=== PATIENT | male | born 1985 | race Caucasian/White ===

== ENCOUNTER 2018-05-08 19:03 | Emergency (ER) | payer MEDICAID ==
[2018-05-08 19:17] VITALS: BP 131/84; PULSE 90; RESP 16; TEMP 98.2; O2SAT 95
--- NOTE | 2018-05-08 19:30 | ED PDOC ---
HPI: CCC, URI, Sore Throat Time Seen by Provider: 05/08/18 19:23 Chief Complaint (Nursing): ENT Problem Chief Complaint (Provider): ENT problem History Per: Patient History/Exam Limitations: no limitations Onset/Duration Of Symptoms: Days (1x) Current Symptoms Are (Timing): Still Present Location Of Pain: None Associated Symptoms: Fever. denies: Nasal Congestion Ear Symptoms: Left: Ear Drainage (bleeding) Severity: Moderate Additional Complaint(s): 33 year old male with no pertinent past medical history presents to the ED for an evaluation of left ear bleeding that started today. Patient denies having pain. Patient states that 3x years ago, he had tubes placed in both ears due to frequent ear infections. Patient states that for the past 2x years, he has been experiencing worsening hearing loss. Patient reports that the tubes were placed by an ENT in [place], but does not have an ENT here. Patient denies having fevers, trauma, and congestion. Of note: Patient also states that he cleans his ears with q-tips frequently. PMD: Jennifer Alejandra MD Past Medical History Reviewed: Historical Data, Nursing Documentation, Vital Signs Vital Signs: Last Vital Signs Temp 98.2 F 05/08/18 19:17 Pulse 90 05/08/18 19:17 Resp 16 05/08/18 19:17 BP 131/84 05/08/18 19:17 Pulse Ox 95 05/08/18 19:17 MARVIN report viewed?: Yes - Medical History PMH: No Chronic Diseases - Surgical History Other surgeries: tubes placed in both ears - Family History Family History: States: No Known Family Hx - Social History Alcohol: None Drugs: Denies - Home Medications Home Medications: Ambulatory Orders Medication Instructions Recorded Naproxen 375 mg PO Q8 PRN #21 tab 01/07/16 Amoxicillin 875 mg PO BID #20 tablet 05/08/18 - Allergies Allergies/Adverse Reactions: Allergies Allergy/AdvReac Type Severity Reaction Status Date / Time No Known Allergies Allergy Verified 05/08/18 19:13 Review of Systems ROS Statement: Except As Marked, All Systems Reviewed And Found Negative Constitutional: Negative for: Fever ENT: Positive for: Ear Discharge (left ear bleeding). Negative for: Nose Congestion Physical Exam - Reviewed Nursing Documentation Reviewed: Yes Vital Signs Reviewed: Yes - Physical Exam Appears: Positive for: Well, Non-toxic Head Exam: Positive for: ATRAUMATIC, NORMOCEPHALIC ENT: Positive for: Pharynx Is (clear), Other (bilateral ears with tubes in place. minimal bleeding in left ear canal. (-) active bleeding. (+) mild effusion in left TM, non-bulging, non-erythematous.). Negative for: Pharyngeal Erythema Respiratory: Positive for: Normal Breath Sounds Neurologic/Psych: Positive for: Alert, Oriented (3x) - ECG O2 Sat by Pulse Oximetry: 95 (RA) Pulse Ox Interpretation: Normal Medical Decision Making Medical Decision Makin:23 Initial impression: 33 year old male with bleeding in the left ear. Patient is advised to follow up with ENT for further evaluation, and to stop cleaning his ears with q-tips. Scribe Attestation: Documented by Vickie Jama, acting as a scribe for Jose Garcia Provider Scribe Attestation: All medical record entries made by the Scribe were at my direction and personally dictated by me. I have reviewed the chart and agree that the record accurately reflects my personal performance of the history, physical exam, medical decision making, and the department course for this patient. I have also personally directed, reviewed, and agree with the discharge instructions and disposition. Disposition - Clinical Impression Clinical Impression: Bleeding from left ear - Patient ED Disposition Is Patient to be Admitted: No - Disposition Referrals: Jorden Alvarado MD [Staff Provider] - Disposition: Routine/Home Disposition Time: 19:29 Condition: STABLE Additional Instructions: FOLLOW UP WITH DR. ALVARADO (ENT) FOR FURTHER EVALUATION RETURN TO ED IMMEDIATELY IF SYMPTOMS WORSEN MELECIO NAVA, thank you for letting us take care of you today. Your provider was Mariaa Jack MD and you were treated for LT EAR BLEEDING. The emergency medical care you received today was directed at your acute symptoms. If you were prescribed any medication, please fill it and take as directed. It may take several days for your symptoms to resolve. Return to the Emergency Department if your symptoms worsen, do not improve, or if you have any other problems. Please contact your doctor or call one of the physicians/clinics you have been referred to that are listed on the Patient Visit Information form that is i ncluded in your discharge packet. Bring any paperwork you were given at discharge with you along with any medications you are taking to your follow up visit. Our treatment cannot replace ongoing medical care by a primary care provider outside of the emergency department. Thank you for allowing the [facility] team to be part of your care today. If you had an X-Ray or CT scan: A Radiologist will review the ED reading if any change in treatment is needed we will contact you. If you had a blood, urine, or wound culture: It will take several days for the results, if any change in treatment is needed we will contact you. If you had an STI test: It will take 48 hours for the results. Please call after 1 week if you have not heard back. Prescriptions: Amoxicillin 875 mg PO BID #20 tablet Instructions: Ear Tubes Forms: [employer] (Macedonian) Print Language: JAPANESE
== END 2018-05-08 20:05 | disposition home or self-care (01) ==
LOC: H.ER 19:03
DX: H92.22 Otorrhagia, left ear (principal)

== ENCOUNTER 2018-08-22 14:18 | Emergency (ER) | payer MEDICAID ==
[2018-08-22 15:39] VITALS: BP 118/70; PULSE 83; RESP 16; TEMP 98.9; O2SAT 93
--- NOTE | 2018-08-22 16:36 | RAD ---
Date of service: 08/22/2018 PROCEDURE: Radiographs of the Chest and Left Ribs. HISTORY: PAIN TO RIBS COMPARISON: None available. TECHNIQUE: Frontal radiograph of the chest and multiple oblique radiographs of the left ribs were obtained. 4 views obtained. FINDINGS: LEFT RIBS: No fracture or focal lesion visualized. LUNGS: Clear. PLEURA: No pneumothorax or pleural fluid. CARDIOVASCULAR: Normal cardiac size. No pulmonary vascular congestion. No aortic atherosclerotic calcification present OTHER FINDINGS: None. IMPRESSION: Unremarkable radiographs of the chest and left ribs. No left rib fracture.
--- NOTE | 2018-08-22 16:40 | ED PDOC ---
HPI: Back Chief Complaint (Nursing): Back Pain Chief Complaint (Provider): Back Pain History Per: Patient History/Exam Limitations: no limitations Onset/Duration Of Symptoms: Days (last night ) Current Symptoms Are (Timing): Still Present Additional Complaint(s): 33 year old male with no significant past medical history presents to the ED with left rib pain onset last night. The pain is localized to the area 3 fingers underneath the breast. Patient reports that he was sleeping last night face down, and got up to use the bathroom. Upon turning he felt a pop in the area. Patient states that he did not feel pain instantly. Patient reports that when he woke up he felt pain while trying to rise. The pain is localized to area, non radiating. Patient reports that it is hard to make movements, bend, even take deep breaths due to pain. He was given Mobic from his PMD for his back pain. Patient states that he took one dose 3X hours ago with minimal relief. PMD: Jennifer Alejandra MD Past Medical History Reviewed: Historical Data Vital Signs: Last Vital Signs Temp 98.9 F 08/22/18 15:36 Pulse 83 08/22/18 15:36 Resp 16 08/22/18 15:36 BP 118/70 08/22/18 15:36 Pulse Ox 93 L 08/22/18 15:36 MARVIN Report Viewed: Yes - Medical History PMH: No Chronic Diseases - Surgical History Surgical History: No Surg Hx - Family History Family History: States: No Known Family Hx - Social History Alcohol: None Drugs: Denies - Home Medications Home Medications: Ambulatory Orders Medication Instructions Recorded Naproxen 375 mg PO Q8 PRN #21 tab 01/07/16 Amoxicillin 875 mg PO BID #20 tablet 05/08/18 - Allergies Allergies/Adverse Reactions: Allergies Allergy/AdvReac Type Severity Reaction Status Date / Time No Known Allergies Allergy Verified 05/08/18 19:13 Review of Systems ROS Statement: Except As Marked, All Systems Reviewed And Found Negative Musculoskeletal: Positive for: Other (Left rib pain) Physical Exam - Reviewed Nursing Documentation Reviewed: Yes Vital Signs Reviewed: Yes - Physical Exam Appears: Positive for: Well Head Exam: Positive for: ATRAUMATIC, NORMOCEPHALIC Skin: Positive for: Normal Color (intact skin, point tenderness to area of pain). Negative for: Rash (no redness) Neck: Positive for: Normal, Supple Cardiovascular/Chest: Positive for: Regular Rate, Rhythm. Negative for: Murmur Respiratory: Positive for: Normal Breath Sounds, Other (lungs clear bilaterally ). Negative for: Respiratory Distress Gastrointestinal/Abdominal: Positive for: Normal Exam, Soft Extremity: Positive for: Normal ROM (upper and lower) Neurological/Psych: Positive for: Awake, Alert, Normal Tone. Negative for: Motor/Sensory Deficits - ECG O2 Sat by Pulse Oximetry: 93 (RA) Pulse Ox Interpretation: Abnormal Medical Decision Making Medical Decision Making: Time: 15:45 Initial Impression: Costochondritis Plan: -XRAY Ribs and Chest LT -Tylenol 975 mg PO -Re-evaluate 16:32 FINDINGS: LEFT RIBS: No fracture or focal lesion visualized. LUNGS: Clear. PLEURA: No pneumothorax or pleural fluid. CARDIOVASCULAR: Normal cardiac size. No pulmonary vascular congestion. No aortic atherosclerotic calcification present OTHER FINDINGS: None. IMPRESSION: Unremarkable radiographs of the chest and left ribs. No left rib fracture. 17:08 Diagnosis: Costochondritis Patient advised to continue taking Mobic. Follow up with PMD. Return to ED parameters given. Scribe Attestation: Documented by Vanesa Maddox, acting as a scribe for Elizabeth Villa APN. Provider Scribe Attestation: All medical record entries made by the Scribe were at my direction and personally dictated by me. I have reviewed the chart and agree that the record accurately reflects my personal performance of the history, physical exam, medical decision making, and the department course for this patient. I have also personally directed, reviewed, and agree with the discharge instructions and disposition. Disposition - Clinical Impression Clinical Impression: Costochondritis - Patient ED Disposition Is Patient to be Admitted: No Counseled Patient/Family Regarding: Diagnosis, Rx Given - Disposition Disposition: Routine/Home Disposition Time: 17:05 Condition: STABLE Instructions: Costochondritis (DC) Print Language: TRINIDADIAN - POA Present On Arrival: None
== END 2018-08-22 17:25 | disposition home or self-care (01) ==
LOC: H.ER 14:18
DX: M94.0 Chondrocostal junction syndrome [Tietze] (principal)

== ENCOUNTER 2018-09-27 11:38 | Emergency (ER) | payer MEDICAID ==
[2018-09-27 11:50] VITALS: BP 137/89; PULSE 94; RESP 20; TEMP 98.3; O2SAT 95
[2018-09-27 11:51] VITALS: BMI 54.9
--- NOTE | 2018-09-27 12:59 | ED PDOC ---
Lower Extremity Pain/Injury Time Seen by Provider: 09/27/18 12:10 Chief Complaint (Nursing): Lower Extremity Problem/Injury Chief Complaint (Provider): Lower Extremity Problem/Injury History Per: Patient History/Exam Limitations: no limitations Onset/Duration Of Symptoms: Other (x1 week) Current Symptoms Are (Timing): Still Present Additional Complaint(s): Patient is a 33 y/o male with no significant PMHx who presents to the ED for evaluation of right foot pain onset one week ago. Patient states he was in [facility] when his right foot got caught in cobblestone as he was walking which caused him to fall forward. Patient claims the pain is constant and has difficulty putting pressure on that foot. Patient denies head injury, loss of consciousness or other injuries. Denies numbness or tingling. Of note, patient took Tylenol at the time of incident but has not taken any medication for relief since. PCP: Dr. Jennifer Alejandra Past Medical History Reviewed: Historical Data, Nursing Documentation, Vital Signs Vital Signs: Last Vital Signs Temp 98.3 F 09/27/18 11:50 Pulse 94 H 09/27/18 11:50 Resp 20 09/27/18 11:50 BP 137/89 09/27/18 11:50 Pulse Ox 95 09/27/18 11:50 Primary Care Provider: Non [facility] Provider, - Medical History PMH: Diabetes Other PMH: glaucoma (left eye), right ankle sprain - Surgical History Surgical History: No Surg Hx - Family History Family History: States: Unknown Family Hx Other Family History: glaucoma - Immunization History Hx Tetanus Toxoid Vaccination: No Hx Influenza Vaccination: No Hx Pneumococcal Vaccination: No - Home Medications Home Medications: Ambulatory Orders Medication Instructions Recorded Naproxen 375 mg PO Q8 PRN #21 tab 01/07/16 Amoxicillin 875 mg PO BID #20 tablet 05/08/18 Ibuprofen [Motrin Tab] 600 mg PO Q6 PRN #20 tab 09/27/18 - Allergies Allergies/Adverse Reactions: Allergies Allergy/AdvReac Type Severity Reaction Status Date / Time No Known Allergies Allergy Verified 05/08/18 19:13 Review of Systems ROS Statement: Except As Marked, All Systems Reviewed And Found Negative Musculoskeletal: Positive for: Foot Pain (Right) Neurological: Negative for: Other (loss of consciousness) Physical Exam - Reviewed Nursing Documentation Reviewed: Yes Vital Signs Reviewed: Yes - Physical Exam Comments: GENERAL APPEARANCE: Patient is awake, alert, oriented x 3, obese, in no acute distress. SKIN: Warm, dry; (-) cyanosis LOWER EXTREMITY: Ankle: Full ROM. dp 2+. cap refill less than 2 seconds. (-) medial/lateral malleolus tenderness. (+) tenderness to fifth metatarsal and top of right foot. (+) mild ecchymosis to top of right foot. (-) deformity. NVI CARDIOVASCULAR: (+) distal pulse. NEUROLOGIC: (+) distal sensation. - ECG O2 Sat by Pulse Oximetry: 95 (RA) Pulse Ox Interpretation: Normal Medical Decision Making Medical Decision Making: Time: 1222 Impression: Right Foot Injury] Plan: Motrin 600 mg PO Foot Right 3 Views Routine [Rad] 13:25 xr reviewed by me - +acute fracture to base of 5th metatarsal podiatry paged 13:32 spoke to podiatry resident who will come see pt 14:00 podiatry resident placed pt in posterior splint, recommends RICE, crutches if able to to be non weight bearing, due to pt's weight may be difficulty, so he can place some weight on heel, f/u in clinic 7-10days, pain control Discussed results, diagnosis, treatment, return precautions and f/u with pt who is understanding, in agreement and stable for dc Scribe Attestation: Documented by Marciano Dorsey, acting as a scribe for Uday Mccarthy PA-C. Provider Scribe Attestation: All medical record entries made by the Scribe were at my direction and perso brandon dictated by me. I have reviewed the chart and agree that the record accurately reflects my personal performance of the history, physical exam, medical decision making, and the department course for this patient. I have also personally directed, reviewed, and agree with the discharge instructions and disposition. Disposition - Clinical Impression Clinical Impression: Fracture of fifth metatarsal bone of right foot - Patient ED Disposition Is Patient to be Admitted: No Counseled Patient/Family Regarding: Studies Performed, Diagnosis, Need For Followup, Rx Given - Disposition Referrals: Podiatry Clinic [Outside] Khushboo Kirk DPM [Staff Provider] - Disposition: Routine/Home Disposition Time: 14:03 Condition: STABLE Additional Instructions: Thank you for letting us take care of you today. The emergency medical care you received today was directed at your acute symptoms. If you were prescribed any medication, please fill it and take as directed. Rest, ice and elevate your foot. Use crutches to be non weight bearing. Take Ibuprofen as prescribed for pain. Follow up with podiatry clinic as listed in 7-10days. It may take several days for your symptoms to resolve. Return to the Emergency Department if your symptoms worsen, do not improve, or if you have any other problems. Please contact your doctor in 2 days for re-evaluation and follow up / or call one of the physicians/clinics you have been referred to that are listed on the Patient Visit Information form that is included in your discharge packet. Bring any paperwork you were given at discharge with you along with any medications you are taking to your follow up visit. Our treatment cannot replace ongoing medical care by a primary care provider (PCP) outside of the emergency department. Prescriptions: Ibuprofen [Motrin Tab] 600 mg PO Q6 PRN #20 tab PRN Reason: Pain, Moderate (4-7) Instructions: Foot Fracture (DC) Forms: [employer] (Kazakh) Print Language: ARABIC - POA Present On Arrival: None
--- NOTE | 2018-09-27 14:35 | CP.PCM.CON ---
History of Present Illness - History of Present Illness History of Present Illness: Podiatry consult note for attending Dr. Whiting 33 y/o M patient with PMH of obesity seen and evaluated in the ED for pain and swelling of the Right foot. Patient states that he was in [facility] a week ago where he tripped in a cobblestone and twisted his right foot backward. He states that he immediately had pain and swelling on the outside of his right foot. He states that the pain was 10/10. Patient states that the pain is 8/10 now and increases to 10/10 when she bear weight on her right foot. Patient states that the swelling decreased from the time of injury. He states that he didn't use any pain meds.Patient denies any tingling, numbness or burning sensation at his right foot at this time. He denies any recent F/N/V/C/CP or SOB. She denies any other pedal complaint at this time. PMH: Obesity. PSH: None Allergies: NKDA Social Hx: Denies smoking, EtOH use or Illicit drug use. Review of Systems - Review of Systems Review of Systems: As per HPI - Constitutional Constitutional: As Per HPI Past Patient History - Infectious Disease Hx of Infectious Diseases: None - Past Social History Smoking Status: Unknown If Ever Smoked - HEENT Hx Blind: Yes Hx Glaucoma: Yes (left) - PSYCHIATRIC Hx Substance Use: No - SURGICAL HISTORY Hx Surgeries: Yes Other/Comment: bilateral ear tubes - ANESTHESIA Hx Anesthesia: Yes Meds Home Medications: Home Medication List Medication Instructions Recorded Confirmed Type Ibuprofen [Motrin Tab] 600 mg PO Q6 PRN #20 tab 09/27/18 Rx Allergies/Adverse Reactions: Allergies Allergy/AdvReac Type Severity Reaction Status Date / Time No Known Allergies Allergy Verified 05/08/18 19:13 Physical Exam - Constitutional Appears: Well, Non-toxic, No Acute Distress - Head Exam Head Exam: ATRAUMATIC, NORMOCEPHALIC - Extremities Exam Additional comments: RLE focused exam: Vasc: DP/PT 2/4 b/l. Cap refill < 3 sec to all digits, Temp gradient warm to cool from proximal to distal. Mild non pitting edema of the lateral side of the right foot at the 5th metatarsal base level. Neuro: Gross and protective sensations are intact. Derm: No open lesions, No clinical signs of active infection. Mild non pitting edema of the lateral side of the right foot at the 5th metatarsal base level. MSK: Pain on palpating the lateral side of the right foot at the 5th metatarsal base level. Pain on the lateral side of the foot with foot dosiflexion,eversion and inversion. MMT 5/5 to all groups - Neurological Exam Neurological exam: Alert, Oriented x3 - Psychiatric Exam Psychiatric exam: Normal Affect, Normal Mood Results - Vital Signs Recent Vital Signs: Last Vital Signs Temp 98.3 F 09/27/18 11:50 Pulse 94 H 09/27/18 11:50 Resp 20 09/27/18 11:50 BP 137/89 09/27/18 11:50 Pulse Ox 95 09/27/18 14:15 Assessment & Plan - Assessment and Plan (Free Text) Assessment: 33 y/o M patient with PMH of obesity seen and evaluated in the ED for right 5th metatarsal base fracture, non displaced. Plan: Patient seen and evaluated in the ED Plan discussed with Dr. Whiting Charts and vitals reviewed; Afebrile. X-ray right foot: Non displaced fracture of the base of the 5th metatarsal bone. Posterior splint applied to the RLE. Patient instructed to keep the splint C/D/I Patient instructed to stay NWB to the RLE. Patient instructed if he has to put weight on his RLE he can bear weight on his heel. Dispensed pair of crutches. Patient instructed to ambulate using crutches. Patient instructed to use the prescribed pain meds if needed. Patient educated and advised to do RICE protocol. Patient expressed verbal understanding. Patient will follow up in the podiatry clinic upon discharge from the ED. - Date & Time Date: 09/27/18 Time: 14:36
--- NOTE | 2018-09-27 15:40 | RAD ---
Date of service: 09/27/2018 PROCEDURE: Right Foot Radiographs. HISTORY: injur 1 wk ago, lateral foot and heel pain COMPARISON: 01/06/2017 TECHNIQUE: 3 views obtained. FINDINGS: BONES: Transverse fracture base of right 5th metatarsal. JOINTS: Normal. SOFT TISSUES: Soft tissue swelling attests to the acuity of the fracture. OTHER FINDINGS: None. IMPRESSION: Acute fracture base of right 5th metatarsal. The finding is marked on the study for review.
== END 2018-09-27 14:22 | disposition home or self-care (01) ==
LOC: H.ER 11:38
DX: S92.351A Displaced fracture of fifth metatarsal bone, right foot, initial encounter for closed fracture (principal); W01.0XXA Fall on same level from slipping, tripping and stumbling without subsequent striking against object, initial encounter; E11.9 Type 2 diabetes mellitus without complications; E66.9 Obesity, unspecified